=== PATIENT | male | born 1995 | race Two or more races ===

== ENCOUNTER 2023-07-05 07:44 | Emergency (ER) | payer MEDICAID, OTHER ==
[~2023-07-05] VITALS: Ht 172.7 cm; Wt 76.1 kg
[2023-07-05 08:33] VITALS: BP 130/92; PULSE 106; RESP 18; TEMP 98.6; O2SAT 96
[2023-07-05 08:43] LABS: Urine Bacteria NONE SEEN /hpf (None Seen); Urine Blood Negative /uL (Negative); Urine Clarity Clear (Clear); Urine Color Yellow (Yellow); Urine Hyaline Cast MOD /lpf (0 - 2); Urine Mucus FEW (None Seen); Urine Protein, UAD TRACE (Negative); Urine Specific Gravity 1.028 (1.001-1.035); Urine Urobilinogen Normal (Negative); Urine WBC 2 /hpf (0 - 3)
[2023-07-05] MEDS ORDERED: PENICILLIN G BENZ 1,200,000 UNITS/2 ML SYRG IM ONE (09:45)
[2023-07-05] MEDS ORDERED: CLOT1CRE78 EX ×3 (09:57→10:12)
[2023-07-07 10:07] LABS: RPR Non Reactive (Non Reactive)
[2023-07-08 00:06] LABS: Chlamydia Trachomatis, NAA Negative (Negative); Neisseria gonorrhoeae, NAA Negative (Negative)
== END 2023-07-05 10:10 | disposition home or self-care (01) ==
LOC: ER 07:44
DX: R21 Rash and other nonspecific skin eruption (principal); Z72.51 High risk heterosexual behavior; Z20.6 Contact with and (suspected) exposure to human immunodeficiency virus [HIV]
CPT/HCPCS: 81001; 86592; 86703; 87491; 87591; 96372; 99283; J0561